=== PATIENT | female | born 1965 | race Caucasian/White ===

== ENCOUNTER → 2019-10-17 | Outpatient (CLI) | payer MEDICARE, MEDICAID ==
[~2019-10-17] MED LIST: ASPI81TA39 PO; ATOR40TA28 PO; ISOS30TA6 PO; METO25 PO; PHOSLOC PO; RANO500T3 PO
== END | disposition home or self-care (01) ==
LOC: RADPV 10:08
PROVIDERS: ATTEND Internal Medicine Nephrology
DX: I70.0 Atherosclerosis of aorta (principal); N18.6 End stage renal disease; Z99.2 Dependence on renal dialysis
CPT/HCPCS: 71046; 71046-TC